=== PATIENT | female | born 1990 | race Caucasian/White ===

== ENCOUNTER 2019-01-04 14:45 | Emergency (ER) | payer OTHER ==
[~2019-01-04] VITALS: Ht 152.4 cm; Wt 107.0 kg
== END 2019-01-04 18:07 | disposition home or self-care (01) ==
LOC: ER 14:45
DX: R00.2 Palpitations (principal)

== ENCOUNTER → 2022-07-31 | Emergency (ER) | payer OTHER ==
[~2022-07-31] VITALS: Ht 165.1 cm; Wt 103.4 kg
[~2022-07-31] MED LIST: CIPRO500 MG PO; PEPCID AC20 MG PO
== END | disposition home or self-care (01) ==
LOC: ER 17:46
DX: R19.7 Diarrhea, unspecified (principal)